=== PATIENT | male | born 1985 | race Caucasian/White ===

== ENCOUNTER 2018-05-09 14:39 | Outpatient (CLI) | payer SELFPAY ==
--- NOTE | 2018-05-09 15:01 | PC.NURSE ---
HERE FOR DOT PHYSICAL
== END 2018-05-09 15:41 | disposition home or self-care (01) ==
LOC: UTC.OUT 14:43
PROVIDERS: Visit Provider Nurse Practitioner Family
DX: Z02.4 Encounter for examination for driving license (principal)

== ENCOUNTER 2021-04-11 12:43 | Emergency (ER) | payer BC, SELFPAY ==
[2021-04-11 13:53] VITALS: BP 103/80; PULSE 76; RESP 21; TEMP 37.7; O2SAT 100; BMI 23.1
[2021-04-11 14:02] VITALS: BP 103/80; PULSE 76; RESP 21; TEMP 37.7
--- NOTE | 2021-04-11 14:12 | HMH.EDUTC ---
[facility] [place] Clinical Impression: Viral syndrome, Exposure to COVID-19 virus Thoracic back pain Qualifiers: Chronicity: acute Back pain laterality: bilateral Qualified Code(s): M54.6 - Pain in thoracic spine Disposition: Home, Self-Care Condition on Discharge: Good Instructions: DI for Viral Syndrome, DI for Back Strain or Sprain, DI for COVID-19 (Suspected or Confirmed ), Preventing the Spread of Coronavirus Discharge Instructions Additional Instructions: Go home and rest. It would be best if you rested tomorrow too. No heavy lifting. No twisting. Take the oral medications as directed. The muscle relaxer (cyclobenzaprine) will make you drowsy, so don't drive or operate heavy machinery after taking it. Follow up with your regular doctor. GO TO THE ER FOR ANY WORSENING SYMPTOMS OR CONCERN, ESPECIALLY BOWEL OR BLADDER ISSUES, SADDLE AREA NUMBNESS, FEVER, ETC Drink plenty of fluids. Take tylenol for pain or fever. Return if you begin to have difficulty breathing. Follow up with your regular doctor. GO TO THE ER FOR ANY WORSENING SYMPTOMS Quarantine until you know the results of your covid-19 test. If it is positive, the health department should call you and give you further instructions about your length of Quarantine and other things. Notify your school or workplace of your results and follow their instructions regarding return to work/school. Prescriptions: Ibuprofen [Ibuprofen 800mg Tablet] 800 mg PO Q8HP PRN #30 tab PRN Reason: Moderate Pain Transmission Status: Received by [id number] Cyclobenzaprine HCl [Cyclobenzaprine 10mg Tab] 10 mg PO BIDP PRN #20 tab PRN Reason: Muscle Spasm Transmission Status: Received by [id number] Referrals: Provider,Referral, [Primary Care Provider] - Forms: Work/School Release Time of Disposition: 14:25 Medical Decision Making - Medical Records Medical records reviewed: No: I reviewed the patient's medical records. - Kvng Inquiry Pt receiving controlled substance: No Vital Signs: 04/11/21 13:53 04/11/21 14:02 Temperature 100 F H 100 F H Temperature Source Oral Pulse Rate 76 Pulse Rate [Left] 76 Respiratory Rate 21 21 Blood Pressure 103/80 L Blood Pressure [Right Arm] 103/80 L Blood Pressure Mean [Right Arm] 87 02 Sat by Pulse Oximetry 100 Oxygen Delivery Method Room Air - Lab Data Lab Results 04/11/21 14:00: Influenza Type A Ag Negative, Influenza Type B Ag Negative [facility] [place] - General Stated complaint: covid test, wkness, aches, head Time Seen by Provider: 04/11/21 14:17 Mode of Arrival: Ambulatory Source of Information: Patient Limitations: No Limitations Description of Symptoms (Recalled from Triage Doc. by RN): pt needs a covid test. pt c/o fever, chills, body aches and a cough. HEENT Symptoms (Recalled from RN notes): No Resp Symptoms (Recalled from RN notes): Yes (cough) Skin Symptoms (Recalled from RN notes): No MS Symptoms (Recalled from RN notes): No Functional Status (Recalled from RN notes): fever, chills and myalgia - History of Present Illness Provider Complaint: He states that for the past 2 days he has felt bad, had some chilling and been very tired. He denies any shortness of breath or significant cough. He denies any documented exposure to covid-19, but he is around a lot of peope thru out his work day. He also c/o some middle back pain that began about 2 weeks ago. He thinks that he strained a muscle that caused the pain to start. - Related Data Previous Rx's Medication Instructions Recorded Cyclobenzaprine HCl 10 mg PO BIDP PRN #20 tab 04/11/21 [Cyclobenzaprine 10mg Tab] Ibuprofen [Ibuprofen 800mg 800 mg PO Q8HP PRN #30 tab 04/11/21 Tablet] - Worker's Comp Is this a Worker's Comp case?: No [facility] History - Hepatitis A Screen Drug use history?: No High risk sexual behaviors?: No History of sexually transmitted infection?: No C
[2021-04-11 14:14] LABS: UTC Influenza A Antigen Negative (Negative)
[2021-04-11 14:15] LABS: UTC Influenza B Antigen Negative (Negative)
--- NOTE | 2021-04-13 13:31 | PC.NURSE ---
PATIENT NOTIFIED OF POSITIVE COVID TEST AT THIS TIME
== END 2021-04-11 14:41 | disposition home or self-care (01) ==
PROVIDERS: Emergency Provider Nurse Practitioner Family
DX: U07.1 COVID-19 (principal); B34.9 Viral infection, unspecified; M54.6 Pain in thoracic spine
CPT/HCPCS: 87804; 99202; G0463; U0003

== ENCOUNTER 2023-06-05 18:02 | Emergency (ER) | payer OTHER, SELFPAY ==
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
[2023-06-05 18:50] VITALS: BP 131/76; PULSE 81; RESP 18; TEMP 37; O2SAT 98; BMI 24.3
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
[2023-06-05 19:32] VITALS: BP 131/76; PULSE 81; RESP 18; TEMP 37; O2SAT 98
== END 2023-06-05 19:41 | disposition home or self-care (01) ==
PROVIDERS: Emergency Provider Nurse Practitioner
DX: M54.2 Cervicalgia (principal); F43.10 Post-traumatic stress disorder, unspecified; V49.40XA Driver injured in collision with unspecified motor vehicles in traffic accident, initial encounter
CPT/HCPCS: 72040; 99212; 99214; G0463

== ENCOUNTER 2024-08-15 12:24 | Emergency (ER) | payer OTHER, SELFPAY ==
[2024-08-15 12:25] VITALS: BP 160/100; PULSE 111; RESP 30; TEMP 36.8; O2SAT 100; BMI 25.0
--- NOTE | 2024-08-15 12:42 | CT_ITS ---
PROCEDURE INFORMATION: Exam: CT Lumbar Spine Without Contrast Exam date and time: 08/15/2024 1:03 PM Age: 39 years old Clinical indication: Low back pain TECHNIQUE: Imaging protocol: Computed tomography of the lumbar spine without contrast. Radiation optimization: All CT scans at this facility use at least one of these dose optimization techniques: automated exposure control; mA and/or kV adjustment per patient size (includes targeted exams where dose is matched to clinical indication); or iterative reconstruction. COMPARISON: No relevant prior studies available. FINDINGS: Bones/joints: No acute fracture or malalignment. No worrisome lytic or blastic osseous lesion. No appreciable cortical erosion or periosteal reaction. Disc heights are preserved. Soft tissues: No appreciable radiopaque foreign body or gas. IMPRESSION: No acute fracture or malaligment.
[2024-08-15] MEDS: KETOROLAC 60MG/2ML VIAL 60 MG IM (12:55)
[2024-08-15] MEDS: ORPHENADRINE CITRATE 60MG/2ML VIAL 60 MG IM (12:55)
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
[2024-08-15 14:50] VITALS: BP 101/72; PULSE 56; RESP 20; TEMP 36.8; O2SAT 98
== END 2024-08-15 14:51 | disposition home or self-care (01) ==
PROVIDERS: Emergency Provider Emergency Medicine
DX: M79.18 Myalgia, other site (principal); S39.012A Strain of muscle, fascia and tendon of lower back, initial encounter; M54.9 Dorsalgia, unspecified; X50.1XXA Overexertion from prolonged static or awkward postures, initial encounter; Y93.89 Activity, other specified; Y92.89 Other specified places as the place of occurrence of the external cause
CPT/HCPCS: 72131; 96372; 99284; J1885; J2360

== ENCOUNTER 2025-06-02 10:10 | Outpatient (CLI) | payer OTHER, SELFPAY ==
--- OUTSIDE RECORDS SUMMARY | 2025-06-02 10:23 | XMS_ITS | Clinical Summary ---
[facility] Organization [facility] Address [address] [place] [address] Care Team Providers Care Drug Abuse Treatment Specialist Name Role Phone Unavailable Primary Care Provider Unavailabl e Social History Tobacco Use Types Packs/Day Years Used Date Smoking Tobacco: Never Assessed Abuse Screen Answer Date Recorded Unsafe at Home or Work/School Not on file Feels Threatened by Someone? Not on file 06/2023 Does Anyone Keep You from Co ntacting Others or Doint Things Outside the Home? Not on file 05/15/2023 Physical Sign of Abuse Present Not on file 1 Housing Stability Answer Date Recorded Current Living Arrangements Not on file 05/05 Potentially Unsafe Housing Conditions Not on altaf e 05/15/2023 Family and Community Support Answer Balbir e Recorded Help with Day-to-Day Activities Not on file 05/15/2023 Lonely or Isolated Not on file 05/15/2023 Employment Answer Date Recorded Do you want help finding or keeping work or a cinda b? Not on file 05/15/2023 Disabilities Answer Date Recorded Concentrating, Remembering, or Making Decisions Difficulty Not on file 05/15/2023 Doing Errands Independently Difficulty Not on fi le 05/15/2023 Education Answer Date Recorded Help with school or training? Not on file Preferred Language Not on file 05/15/2023 Sex and Gender Information Value Date Recorded Sex Assigned at Not on file Legal Sex Male 8:51 AM EST Gender Identity Not on file Sexual Orientation Not on file Plan of Treatment Health Maintenance Due Date Last Done Comments ANNUAL PHYSICAL 1986 HEPATITIS C SCREENING 1986 TDAP/TD VACCINES (1 - Tdap) 2005 INFLUENZA VACCINE 03/05/2025 Pneumococcal Vaccine 0-49 Aged Out No longer eligible based on patient's age to complete this topic
[2025-06-02 10:32] VITALS: BMI 25.0
[2025-06-02 10:43] LABS: Hematocrit 45.3 % (42.0-52.0); Hemoglobin 15.8 g/dL (14.1-18.0); Immature Granulocytes % 0 %; Mean Corpuscular HGB Conc 34.9 g/dL (31.8-35.4); Mean Corpuscular Hemoglobin 30.1 pg (27.0-31.2); Mean Corpuscular Volume 86.3 fl (80-94); Nucleated Red Blood Cells % 0 %; Platelet Count 236 K/mm3 (142-424); Red Blood Count 5.25 M/mm3 (4.60-6.20); Red Cell Distribution Width-SD 39.9 fL; White Blood Count 5.2 K/mm3 (4.8-10.8)
[2025-06-02 10:55] LABS: Anion Gap 10.2 mEq/L (5-15); Blood Urea Nitrogen 18 mg/dl (9-20); Calcium 9.1 mg/dl (8.4-10.2); Carbon Dioxide 28 mmol/L (22.0-30.0); Chloride 101 mmol/L (98-107); Creatinine Clearance Estimated 106 mL/min (50-200); Creatinine,Serum 1.20 mg/dl (0.66-1.25); Estimated Glomerular Filt Rate 67 ml/min (>60); GFR (African American) 82 ML/MIN (>60); Glucose 86 mg/dl (74-100); Potassium 4.2 mmoL/L (3.5-5.1); Sodium 135 mmol/L (136-145)
== END 2025-06-02 23:59 | disposition home or self-care (01) ==
LOC: PREOP 10:11
PROVIDERS: Visit Provider Surgery
DX: Z01.812 Encounter for preprocedural laboratory examination (principal)
CPT/HCPCS: 36415; 80048; 85025

== ENCOUNTER 2025-06-04 08:28 | Day surgery (SDC) | payer OTHER, SELFPAY ==
[2025-06-02 10:30] VITALS: BMI 25.0
[2025-06-04] VITALS (11 sets, daily range): BP systolic 118–153; BP diastolic 61–96; PULSE 66–76; RESP 15–18; TEMP 36.1–38; O2SAT 96–100; BMI 25.0
[2025-06-04] MEDS: 0.9 % SODIUM CHLORIDE 1000ML 1,000 ML 25 ML IV (09:01)
--- NOTE | 2025-06-04 09:14 | EXP.ANES.CKL ---
[facility] Disclaimer: The information contained in this section may have been updated after the patient was seen, as this information can be updated by other users. Medical History PTSD (post-traumatic stress disorder) Surgical History History of tonsillectomy History of tympanostomy tube placement Family History Father Family history of stroke Parkinson disease Father No problems noted. Social History (Updated 06/04/25 @ 08:47 by Tara Rucker RN) Smoking Status: Unknown if ever smoked alcohol intake: never substance use type: denies use current occupational status: employed Travel in the last 8 weeks?: None [facility] Anesthesia Checklist Patient Identification Patient Identification: Arm Band Structural Data Admitted From: Home Planned Operative Procedure/s: Excision of Mass Left Lower Extremity Consent for Planned Operative Procedure(s) Verified: Yes Verified Documents: Surgical Consent and History and Physical NPO Status Verified Time NPO: 00:00 Additional verifications Anesthesia Reactions: No Airway Assessment Mallampati Score:: Class II C-Spine Mobility Assessed: Yes TMJ Mobility Assessed: Yes Dentition: Good Dentition Neurological Assessment Level of Consciousness: Awake, Alert and Appropriate Anesthesia Plan Anesthesia Risk discussed: Yes Anesthesia Plan: Verified ASA Class: II Anesthesia Type: General
[2025-06-04] MEDS: LIDOCAINE 1% 20ML MDV 20 ML (12:15)
--- NOTE | 2025-06-04 13:12 | EXP.OP.NOTE ---
Date of procedure: 06/04/25 Pre-op Diagnosis:: This left lower extremity mass (5 cm cystic left anterior mid thigh lesion) Post-op Diagnosis:: Same Procedure performed:: Excision of cystic left anterior mid thigh lesion (5 cm) Surgeon:: Markell Serrano MD Anesthesia: local and LMA Estimated blood loss (mL): 10 Operative findings:: Lesion excised in toto Operative note:: After informed consent was obtained the patient was taken to the operating room and placed in the supine position. General anesthesia with a laryngeal mask airway was achieved. His left anterior thigh region was prepped and draped in a sterile fashion. After infiltration with local anesthetic an elliptical incision was made around the lesion. A combination of sharp dissection and electrocautery was utilized to transect through the deep subcutaneous tissue to the level of the fascial margin. The mass lesion approached the margin of the fascia but did not invade/encroach through the fascia. The lesion was excised in toto and passed off for pathologic evaluation. Subcutaneous flaps were then created with electrocautery overlying the fascial margin. The deep subcutaneous tissue was reapproximated with 2-0 Vicryl and skin was then closed with 4-0 Monocryl in an interrupted mattress fashion. Dressings were applied and the patient was transferred to recovery in stable condition. Condition: stable Disposition: PACU Specimens:: Left lower extremity cystic lesion Complications:: No immediate
--- NOTE | 2025-06-04 13:27 | EXP.ANES.I ---
[facility] Anesthesia Record Part I Anesthesia Record I Intake, IV Amount: 1,000 Hydration: Adequate Estimated blood loss (mL): 10 Urine output (mL): 0 Blood Pressure: 125/64 SaO2: 96 Pulse Rate: 69 Airway Patency: Patent Respiratory Rate: 18 Temperature: 98.3 F Patient is:: Awake, Drowsy and Stable Stable to PACU at:: 13:27
--- NOTE | 2025-06-07 10:02 | EXP.ANES.II ---
[facility] Anesthesia Record Part II Anesthesia Record Part II Discharge Time: 14:30 Destination: Surgical Day Care (OP Surgery) PACU nurse assessment reviewed?: Yes Patient Condition:: Good Anesthesia Complications:: None Swallowing reflex intact?: Yes Airway Patency: Patent Cyanosis?: No Blood Pressure: 138/73 SaO2: 100 Respiratory Rate: 18 Pulse Rate: 70 Temperature: 97.0 F Mental Status: Alert & Oriented Pain level:: 0 Nausea and/or vomitting:: None Intake, IV Amount: 0 Hydration: Adequate
[2025-06-07 10:03] VITALS: BP 138/73; PULSE 70; RESP 18; TEMP 36.1; O2SAT 100
== END 2025-06-04 14:30 | disposition home or self-care (01) ==
PROVIDERS: Visit Provider Surgery
PROC: (CPT 11406; principal; 2025-06-04 10:15)
DX: L72.0 Epidermal cyst (principal)
CPT/HCPCS: 11406; 96374; J0690; J1100; J1200; J2003; J2250; J2405; J2704; J3010; J7030; J7120